=== PATIENT | male | born 1975 | race Caucasian/White ===

== ENCOUNTER 2025-02-25 16:22 | Emergency (ER) | payer OTHER, SELFPAY ==
[2025-02-25 16:25] VITALS: BP 171/105
--- NOTE | 2025-02-25 16:41 | EDRN ---
L great toe lac; papertowel dressing removed, NSS guaze dressing applied.
[2025-02-25] MEDS: KEFLEX 500 MG PO (19:56)
--- NOTE | 2025-02-25 19:58 | ED.GENMED ---
History of Present Illness
General
Chief Complaint: Skin Surface Trauma
Source: patient
Exam Limitations: none
Time Seen by Provider: 02/25/25 18:07
Nursing documentation reviewed up to this point in time: agreed with
History of Present Illness
History of Present Illness:
49-year-old male past medical history of hypertension hyperlipidemia presenting to the emergency department today with concerns of a laceration to his left great toe that occurred when he got tripped up walking with sandals on on a slight step.
Denies any additional injuries or concerns. No history of diabetes or immunosuppression. Denies additional concerns. He had a tetanus shot 1 year ago.
Review of Systems
Review of Systems
Allergies reviewed?: Yes
All Other Systems: ROS reviewed and negative except as documented in HPI and ROS
Phy Exam
Physical Exam
Physical Exam:
GENERAL: Alert , in no apparent distress
EYE: pupils equal and reactive
NECK: Supple, no significant adenopathy.
ENT: o/p clr, mmm.
CARDIAC: Regular rate and rhythm .
LUNGS: Clear breath sounds bilaterally, no acute respiratory distress, no wheezes/rales/rhonchi
ABDOMEN: Soft, without focal tenderness, no r/g, no cvat
NEUROLOGICAL: Alert and oriented, no focal neuro deficits
SKIN: left great toe inferiorly, 4 cm lac subcutaneous in depth. Warm and dry, skin intact.
MUSCULOSKELETAL: No edema, well perfused.
PSYCH: Normal and appropriate interaction.
Course
Orders/Labs/Results
Orders:
Orders
02/25/25 16:39
CR Toe(s) Min 2 Vw Left Urgent
Comment:
Reason For Exam: Open injury
Indicate Which Toe:: Great
02/25/25 19:52
Cast Shoe Left-Treatment ONCE
Cephalexin Monohydrate [Keflex] 500 mg PO NOW STA
Vital Signs
Initial and Last Documented VS:
Initial Vital Signs
Temp Pulse Resp BP Pulse Ox
98.6 F 95 18 171/105 98
02/25/25 16:25 02/25/25 16:25 02/25/25 16:25 02/25/25 16:25 02/25/25 16:25
Last Documented Vital Signs
Temp Pulse Resp BP Pulse Ox
98.6 F 95 18 171/105 98
02/25/25 16:25 02/25/25 16:25 02/25/25 16:25 02/25/25 16:25 02/25/25 16:25
Procedures
Laceration Closure
Left Inferior First Toe:
Status of Wound: clean
Size of Wound in cm: 4
Description of Wound Edges: sharp
Preparation: cleaned with saline
Anesthesia: 2% Lidocaine
Revision/Debridement: routine- no revision and irrigate-direct pressure
Wound exploration: foreign body removed and all visible FB removed
Type of Closure: single layer closure
Skin Closure Material: 3-0 nylon
Number of sutures: 11
MDM/Problems Addressed
MDM/Problems Addressed:
49-year-old male presenting to the emergency department today with concerns of laceration to the left great toe prior to arrival after tripping on a step wearing sandals. Denies any additional concerns otherwise. Laceration was subcutaneous in
depth explored to its base, there were 2 very small black foreign body unclear what specific material. These were removed otherwise was clean. No bone or tendon involvement. X-ray without emergent findings. Patient was started on antibiotics due
to the foreign body that was found. This was closed with 11 stitches advised for removal in roughly 14 days return precautions given for any signs of infection.
*Pulse Oximetry
SaO2: 98
Oxygen Mode of Delivery: Room air
Patient hypoxic: no (98)
*Critical Care Note
Total Time (30-74mins, 75-104mins- exclusive of procedures): Not Applicable
ED Attending Note
-
Portions of this chart may have been created with voice recognition software.� Occasional wrong word or��sound alike� substitutions may have occurred due to the inherent limitations of voice recognition software.
Discharge Plan
Departure
Patient Disposition: Home (Routine Discharge)
Date of Disposition: 02/25/25
Time of Disposition: 19:58
Patient with high blood pressure during this ER visit?: No
Condition: Good
Covid-19: Not Applicable
Discharge Problem:
Laceration of toe
Instructions: Laceration Repair With Stitches (DC)
Prescriptions:
New
cephalexin 500 mg capsule
500 mg PO TID 3 Days Qty: 9 0RF
Referrals:
Bella Garcia NP [Family Provider]
Activity Restrictions/Additional Instructions:
You came to the emergency department today with concerns of a toe laceration. Here you had an x-ray without emergent findings. You were started on antibiotics. Please take this 3 times daily for the next 3 days. Please keep the area clean
covered return for any worsening, new or concerning symptoms. Please have the sutures removed in 14 days.
Interventions
Interventions:
*Risk Screen - Suicide Last Done: 02/25/25 16:25
*General Assessment Last Done: 02/25/25 16:25
*Neglect/Abuse Screening Last Done: 02/25/25 16:25
ED-Skin Assessment Last Done: 02/25/25 16:40
Discharge Date and Time
Print Language: TELUGU
== END 2025-02-25 20:18 | disposition home or self-care (01) ==
LOC: EMR 16:22
PROVIDERS: EMERGENCY PHYSICIAN Emergency Medicine; FAMILY PHYSICIAN Nurse Practitioner Family
DX: S91.122A Laceration with foreign body of left great toe without damage to nail, initial encounter (principal); X58.XXXA Exposure to other specified factors, initial encounter; I10 Essential (primary) hypertension; E78.5 Hyperlipidemia, unspecified
CPT/HCPCS: 12042; 99283; 73660